=== PATIENT | female | born 1970 | race Caucasian/White ===

== ENCOUNTER 2023-11-18 16:54 | Emergency (ER) | payer SELFPAY ==
[2023-11-18] VITALS (8 sets, daily range): BP systolic 125–158; BP diastolic 80–90
[2023-11-18 17:18] LABS: % Basophils 0.6 % (0-2); % Immature Granulocytes 9.9 % (0-0.5); % Lymphocytes 19.4 % (20.5-51.1); % Neutrophils 59.1 % (42.2-75.2); Absolute Basophils 0.1 10^3/uL (0-0.2); Absolute Eosinophils 0.2 10^3/uL (0-0.7); Absolute Immature Granulocytes 0.8 10^3/uL (0-0.05); Absolute Lymphocytes 1.7 10^3/uL (1.2-3.4); Absolute Monocytes 0.8 10^3/uL (0.1-0.6); Hemoglobin 13.1 g/dL (12.0-16.0); Mean Corp Hgb Conc. 34.5 g/dL (33.0-37.0); Mean Corpuscular Hgb 29.6 pg (27.0-31.0); Nucleated Red Blood Cells % 0 %; Platelet Count 362 10^3/uL (130-400); Red Blood Cell Count 4.42 10^6/uL (4.20-5.40); Red Cell Dist. Width 12.8 % (11.5-14.5); White Blood Cell Count 8.5 10^3/uL (4.8-10.8)
[2023-11-18 17:32] LABS: ALT (SGPT) 66 U/L (0-35); AST (SGOT) 33 U/L (14-36); Albumin 3.6 g/dl (3.5-5.0); Alkaline Phosphatase 134 U/L (38-126); Blood Urea Nitrogen 12 mg/dl (7-17); Carbon Dioxide 28 mmol/L (22-30); Chloride 99 mmol/L (98-107); Glucose 107 mg/dl (70-99); Potassium 4.5 mmol/L (3.5-5.1); Sodium 135 mmol/L (135-145); Total Bilirubin 0.5 mg/dl (0.2-1.3); Total Protein 6.6 g/dl (6.3-8.2); eGFR > 60.00
--- NOTE | 2023-11-18 19:37 | ED.GENMED ---
History of Present Illness
General
Chief Complaint: Breathing Problem
Source: patient
Exam Limitations: none
Time Seen by Provider: 11/18/23 19:27
Travel History
Have you had any contact with someone who has COVID-19?: No
Do you have any symptoms of coronavirus? Fever > 100 degrees, chills, cough, shortness of breath, sore throat, loss of taste or smell, muscle aches, or headache?: No
History of Present Illness
History of Present Illness:
53-year-old female has felt off for about 3+ weeks. Started with general myalgias some headaches minimal cough. Has had shortness of breath for a few weeks. Seen in urgent care last week. Had a course of steroids without significant change
although the headaches resolved. Called urgent care today who recommended ER evaluation for ongoing some. Major symptom is shortness of breath
Past History
Past History
ED Past Medical History: None
Review of Systems
Review of Systems
Constitutional: Reports fever and chills
Respiratory: Reports cough (Slight)
Phy Exam
Physical Exam
Physical Exam:
GENERAL: Alert and oriented in no apparent distress
EYE: Orbits normal.
NECK: Supple, no significant adenopathy.
ENT: Pharynx without erythema
CARDIAC: Regular rate and rhythm without any obvious murmurs.
LUNGS: No respiratory distress. Crackles right base
ABDOMEN: Soft, without focal tenderness or distention
NEUROLOGICAL: Alert and oriented , grossly non-focal
SKIN: Warm and dry, no rash or lesion, no discoloration, skin intact.
MUSCULOSKELETAL: No edema,no deformity.Good color
PSYCH: Normal and appropriate interaction.
Scores
Heart Failure Risk
Heart Failure Risk Score: Not Applicable
Course
Orders/Labs/Results
Orders:
Orders
11/18/23 17:02
CR Chest - 2 Views Urgent
Comment:
Reason For Exam: respiratory distress
11/18/23 17:08
Complete Blood Count/With Diff Urgent
Comprehensive Metabolic Panel Urgent
11/18/23 19:34
IV Insert/Care/Rem.- Treatment PRN
0.9% Sodium Chloride 500 ml [Nss] 500 ml IV BOLUS
11/18/23 19:35
Electrocardiogram (*1) Stat
Reason for Study: Other
Other Reason for Exam: chest pain
CT Chest Pe Study Urgent
Comment:
Reason For Exam: Shortness of breath
EKG- Treatment ONCE
11/18/23 19:52
COVID-19 Antigen Urgent
Source: Nasal Swab
Troponin I Urgent
Influenza A+B Rapid Molecular Urgent
GILDARDO Source: Nasal Swab
Specimen Description:
11/18/23 22:28
Azithromycin 500 mg/250 ml [Zithromax Infusion] 500 mg in 250 ml IV NOW
CefTRIAXone [Rocephin] 1,000 mg IV NOW STA
Abnormal Lab Results
11/18/23
17:08
Abs Immat Gran (auto) 0.8 H 10^3/uL
(0-0.05)
Absolute Monos (auto) 0.8 H 10^3/uL
(0.1-0.6)
Immature Gran % 9.9 H %
(0-0.5)
Lymphocytes % 19.4 L %
(20.5-51.1)
Glucose 107 H mg/dl
(70-99)
ALT 66 H U/L
(0-35)
Alkaline Phosphatase 134 H U/L
(38-126)
11/18/23 17:08
11/18/23 17:08
Vital Signs
Initial and Last Documented VS:
Initial Vital Signs
Temp Pulse Resp BP Pulse Ox
98.3 F 83 16 125/85 98
11/18/23 17:01 11/18/23 17:01 11/18/23 17:01 11/18/23 17:01 11/18/23 17:01
Last Documented Vital Signs
Temp Pulse Resp BP Pulse Ox
98.3 F 74 18 117/73 95
11/18/23 17:01 11/18/23 20:37 11/18/23 20:37 11/19/23 00:00 11/19/23 00:00
MDM/Problems Addressed
Differential Diagnosis Includes:
Suspect infectious and probably pneumonia however with symptoms for 3 weeks slightly unusual time course. Pulmonary infarct would also have to be consideration. Will get a CT check COVID flu and cardiac for completeness
*Radiology
Radiology exam reviewed: radiology read reviewed (Questionable small infiltrate) and other (CT scan shows right upper lobe and right lower lobe infiltrate)
*EKG
Interpreted by ED Provider?: Yes
Interpretation: normal
Comparison EKG: no comparison EKG present
Heart Rate: 72
Rate: normal
Rhythm: sinus
Widen: normal axis
Interval: normal interval
QRS Pattern: normal QRS
Ischemia: no ischemia
*Critical Care Note
Total Time (30-74mins, 75-104mins- exclusive of procedures): Not Applicable
Update Note
Update Note:
Patient is remained medically stable and nontoxic. Very reasonable for outpatient coverage. No respiratory distress. Nontoxic. No immunosuppression.
ED Attending Note
-
Portions of this chart may have been created with voice recognition software.� Occasional wrong word or��sound alike� substitutions may have occurred due to the inherent limitations of voice recognition software.
Discharge Plan
Departure
Patient Disposition: Home (Routine Discharge)
Date of Disposition: 11/18/23
Time of Disposition: 22:53
Patient with high blood pressure during this ER visit?: Yes
Discharge Problem:
Right-sided pneumonia
Instructions: Pneumonia, Adult (DC), BLOOD PRESSURE
Prescriptions:
New
cefdinir 300 mg capsule
300 mg PO BID 9 Days Qty: 18 0RF
azithromycin [Zithromax] 250 mg tablet
250 mg PO DAILY Qty: 6 0RF
No Action
ibuprofen 200 mg Tablet
800 mg PO Q6H PRN (Reason: mild pain/fever)
Referrals:
Em Rodriguez MD [Active] - Follow up in 5-7 days
NONE,* [Family Provider] -
Activity Restrictions/Additional Instructions:
Azithromycin, 2 tablets day 1 then 1 tablet daily for 4 days
Omnicef twice a day.
Start both tomorrow night
You should try to find a regular physician for follow-up. Here is the name of a religious education coordinator if needed
Of course if you have any progression of symptoms or lack of improvement in the next 2 to 4 days please return to the ER
Interventions
Interventions:
*Risk Screen - Suicide Last Done: 11/18/23 18:45
*General Assessment Last Done: 11/18/23 16:59
*Neglect/Abuse Screening Last Done: 11/18/23 18:45
ED- Fall Risk Assessment Last Done: 11/19/23 00:16
*ED COVID-19 Vaccine History Last Done: 11/18/23 18:44
*Nursing Disposition Last Done: 11/19/23 00:16
ED- Cardiac Assessment Last Done: 11/18/23 18:45
ED- Pulmonary Assessment Last Done: 11/18/23 18:45
Discharge Date and Time
Discharge Date/Time: 11/19/23 00:40
Print Language: CITIZEN OF [place]
[2023-11-18 20:16] LABS: COVID-19 Antigen Negative (Negative)
[2023-11-18 20:28] LABS: Troponin I < 0.012 ng/ml
[2023-11-18] MEDS: NSS 500 IV (20:36)
[2023-11-18] MEDS: ROCEPHIN 1000 MG IV (22:50)
[2023-11-18] MEDS: ZITHROMAX INFUSION 250 IV (23:00)
[2023-11-19] VITALS: BP 117/73
== END 2023-11-19 00:40 | disposition home or self-care (01) ==
LOC: EMR 16:54
PROVIDERS: Emergency Medicine; EMERGENCY PHYSICIAN Emergency Medicine
DX: J18.9 Pneumonia, unspecified organism (principal); R03.0 Elevated blood-pressure reading, without diagnosis of hypertension; R51.9 Headache, unspecified; Z11.52 Encounter for screening for COVID-19; Z88.1 Allergy status to other antibiotic agents; Z88.0 Allergy status to penicillin
CPT/HCPCS: 99285; 96361 ×2; 96365; 71046; 71275; 80053; 84484; 85025; 87502; 87811; 93005; Q9967

== ENCOUNTER 2023-11-22 19:37 | Observation (INO) | payer SELFPAY ==
[2023-11-22] VITALS (8 sets, daily range): BP systolic 137–167; BP diastolic 75–96; BMI 29.5; BMI 28.0
--- NOTE | 2023-11-22 16:05 | ED.GENMED ---
History of Present Illness
General
Chief Complaint: Breathing Problem
Source: patient
Exam Limitations: none
Time Seen by Provider: 11/22/23 15:03
Nursing documentation reviewed up to this point in time: agreed with
Travel History
Have you had any contact with someone who has COVID-19?: No
Do you have any symptoms of coronavirus? Fever > 100 degrees, chills, cough, shortness of breath, sore throat, loss of taste or smell, muscle aches, or headache?: No
History of Present Illness
History of Present Illness:
Patient diagnosed with pneumonia 4 days ago, and started on Omnicef and Zithromax, presents to ED secondary to continual intermittent cough, along with worsening shortness of breath with exertion. Denies fever at home currently, although she had
fever 2 weeks ago, as she has had ongoing symptoms for the past 3 weeks. Denies chest pain. Denies nausea, vomiting, or diarrhea. Denies dizziness. Denies headache. Denies sore throat. Patient has noted nonpainful, non-itchy rash on her
forehead today. 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 Denies travel outside the country.
Past History
Past History
ED Past Medical History: None
Review of Systems
Review of Systems
Allergies reviewed?: Yes
All Other Systems: ROS reviewed and negative except as documented in HPI and ROS
Constitutional: Reports night sweats; Denies weight loss
EENT: Reports no symptoms
Respiratory: Reports cough and trouble breathing
Cardiac: Reports no symptoms
ABD/GI: Reports diarrhea; Denies vomiting
: Reports no symptoms
Musculoskeletal: Reports no symptoms
Skin: Reports no symptoms
Neurological: Reports no symptoms
Phy Exam
Physical Exam
Physical Exam:
Physical Exam
General: mild respiratory distress, not acutely ill. afebrile.
Head: nc/at. eomi
Neck: supple. no meningeal signs.
Heart: s1/s2 regular rate and rhythm, no murmur. equal radial pulses.
Lungs: mild respiratory distress. clear bilaterally
Abdomen: normal bowel sounds. not tender.
Neuro: alert and oriented. no focal neurological deficits
Skin: no rash
Psychiatric: well kept. interactive and cooperative
Extremities: no edema. no calf tenderness.
Scores
Heart Failure Risk
Heart Failure Risk Score: Not Applicable
Course
Orders/Labs/Results
Orders:
Orders
11/22/23 16:10
0.9% Sodium Chloride 500 ml [Nss] 500 ml IV BOLUS
Albuterol Nebs [Ventolin Nebules] 2.5 mg INH R NOW STA
Vancomycin 1 Gram/200 ml [Vancocin] 1 gram in 200 ml IV NOW
11/22/23 16:14
Complete Blood Count/With Diff Urgent
Comprehensive Metabolic Panel Urgent
Lactic Acid Q4H
Comment: CANCEL 2nd LACTIC ACID IF 1st LACTIC ACID IS LESS THAN 2
Magnesium Urgent
NT-proBNP Urgent
Blood Culture Q30M
GILDARDO Source: Blood/Venous
Specimen Description:
Blood Culture Q30M
GILDARDO Source: Blood/Venous
Specimen Description:
11/22/23 16:17
Urinalysis Reflex To Culture Urgent
Date Specimen was Collected: 11/22/23
Time Specimen was Collected: 16:13
11/22/23 17:00
Sterile Water [Sterile Water For Injection] 10 ml IV ONCE ONE
11/22/23 17:30
CR Chest - 2 Views Urgent
Comment:
Reason For Exam: sob/hypoxia
11/22/23 17:32
Add On- LAB Urgent
Tests Added?: procalcitonin
11/22/23 18:00
Aztreonam [Azactam] 2,000 mg IV ONCE ONE
11/22/23 19:24
Admit/Transfer Patient As Directed
Co-Sign Provider:
Level of Care: Observation services
Assign to:: Medical/Surgical
Physician / Group: hospitalist
Diagnosis: right upper lobe pneumonia
11/22/23 19:25
Code Status As Directed
Resuscitation Status: Full Code
11/22/23 20:15
Lactic Acid Q4H
Comment: CANCEL 2nd LACTIC ACID IF 1st LACTIC ACID IS LESS THAN 2
Abnormal Lab Results
11/22/23
16:14
MCHC 32.3 L g/dL
(33.0-37.0)
Abs Immat Gran (auto) 0.1 H 10^3/uL
(0-0.05)
Immature Gran % 2.1 H %
(0-0.5)
Glucose 117 H mg/dl
(70-99)
ALT 52 H U/L
(0-35)
11/22/23 16:14
11/22/23 16:14
Vital Signs
Initial and Last Documented VS:
Initial Vital Signs
Temp Pulse Resp BP Pulse Ox
98.3 F 68 20 155/96 99
11/22/23 14:22 11/22/23 14:22 11/22/23 14:22 11/22/23 14:22 11/22/23 14:22
Last Documented Vital Signs
Temp Pulse Resp BP Pulse Ox
98.3 F 73 15 146/88 99
11/22/23 14:22 11/22/23 20:30 11/22/23 20:30 11/22/23 20:00 11/22/23 14:22
MDM/Problems Addressed
MDM/Problems Addressed:
CT chest report from previous ED visit noted -right upper and lower lobe consolidation.
During short ambulation ED, patient found to be in moderate to severe respiratory distress. Patient will be admitted for IV antibiotics, failed outpatient therapy.
*Critical Care Note
Total Time (30-74mins, 75-104mins- exclusive of procedures): Not Applicable
ED Attending Note
-
Portions of this chart may have been created with voice recognition software.� Occasional wrong word or��sound alike� substitutions may have occurred due to the inherent limitations of voice recognition software.
Discharge Plan
Departure
Patient Disposition: Admit
Date of Disposition: 11/22/23
Time of Disposition: 17:18
Admit to: Telemetry
Presentation/result/management discussed w/ accepting MD/DO: Hospitalist
Discharge Problem:
Pneumonia
Interventions
Interventions:
*Risk Screen - Suicide Last Done: 11/22/23 17:05
*General Assessment Last Done: 11/22/23 17:05
*Neglect/Abuse Screening Last Done: 11/22/23 17:05
ED- Fall Risk Assessment Last Done: 11/22/23 17:05
*ED COVID-19 Vaccine History Last Done: 11/22/23 14:22
*Nursing Disposition Last Done: 11/22/23 20:36
ED- Cardiac Assessment Last Done: 11/22/23 16:15
ED- Pulmonary Assessment Last Done: 11/22/23 16:15
Discharge Date and Time
Discharge Date/Time: 11/22/23 20:38
[2023-11-22] MEDS: NSS 500 IV (16:21)
[2023-11-22 16:23] LABS: % Basophils 0.7 % (0-2); % Eosinophils 1.6 % (0-6); % Immature Granulocytes 2.1 % (0-0.5); % Lymphocytes 40.4 % (20.5-51.1); % Monocytes 5.1 % (1.7-9.3); % Neutrophils 50.1 % (42.2-75.2); Absolute Eosinophils 0.1 10^3/uL (0-0.7); Absolute Immature Granulocytes 0.1 10^3/uL (0-0.05); Absolute Lymphocytes 2.3 10^3/uL (1.2-3.4); Absolute Monocytes 0.3 10^3/uL (0.1-0.6); Absolute Neutrophils 2.9 10^3/uL (1.4-6.5); Hematocrit 43.3 % (37.0-47.0); Mean Corp Hgb Conc. 32.3 g/dL (33.0-37.0); Mean Corpuscular Volume 89.6 fL (81.0-99.0); Mean Platelet Volume 9.4 fL (7.4-10.4); Nucleated Red Blood Cells % 0 %; Platelet Count 341 10^3/uL (130-400); Red Blood Cell Count 4.83 10^6/uL (4.20-5.40); Red Cell Dist. Width 12.1 % (11.5-14.5); White Blood Cell Count 5.7 10^3/uL (4.8-10.8)
[2023-11-22 16:32] LABS: Lactic Acid 1.5 mmol/L (0.7-2.0)
[2023-11-22 16:34] LABS: Urine Albumin Negative (Neg - Trace); Urine Bilirubin Negative (Negative); Urine Character Clear (Clear); Urine Color Straw; Urine Glucose Negative (Negative); Urine Ketone Negative (Negative); Urine Leukocyte Negative (Negative); Urine Nitrite Negative (Negative); Urine Occult Blood Negative (Negative); Urine Specific Gravity 1.005 (<1.030); Urine Urobilinogen Negative (Neg - 1+)
[2023-11-22] MEDS: VENTOLIN NEBULES 2.5 MG INH (16:35)
[2023-11-22 16:37] LABS: ALT (SGPT) 52 U/L (0-35); AST (SGOT) 29 U/L (14-36); Albumin 4.4 g/dl (3.5-5.0); Alkaline Phosphatase 114 U/L (38-126); Blood Urea Nitrogen 12 mg/dl (7-17); Carbon Dioxide 28 mmol/L (22-30); Chloride 103 mmol/L (98-107); Glucose 117 mg/dl (70-99); Magnesium 2.3 mg/dl (1.6-2.3); Sodium 139 mmol/L (135-145); Total Bilirubin 0.3 mg/dl (0.2-1.3); Total Protein 7.8 g/dl (6.3-8.2); eGFR > 60.00
[2023-11-22] MEDS: VANCOCIN 200 IV (16:37)
[2023-11-22 16:42] LABS: NT-proBNP 26.4 pg/ml
[2023-11-22] MEDS: STERILE WATER FOR INJECTION 10 ML IV (16:56)
[2023-11-22] MEDS: AZACTAM 2000 MG IV (16:56)
--- NOTE | 2023-11-22 19:12 | HPS.HSE ---
Family Physician
-
Family Physician: * NONE
Chief Complaint
-
Shortness of breath, failure of outpatient treatment for pneumonia
History of Present Illness
This is a 53-year-old with no known significant past medical history and on not on any medications at home who presented to the emergency department about 5 days ago with cough and shortness of breath and was found to have a lobar pneumonia for
which she was treated initially with IV antibiotics transitioning to oral and then discharged from the ED now returning to the ED with ongoing dyspnea exertion.
Patient reports compliance with her antibiotics. She now has just a dry cough. However she reports that she is still having dyspnea on exertion but no shortness of breath at rest. She has a cough that is now nonproductive. She denied having any
fevers or chills. She had no known new sick contacts. Patient denies any pleuritic chest pain. She denies any lower extremity swelling, calf tenderness or redness. She reports mild diarrhea while she is taking the antibiotics. She also reports
feeling dehydrated.
In the ED she is afebrile, blood pressure was 160 60, pulse 75 and oxygen saturation was 96 to 99% on room air at rest. Repeat chest x-ray shows improvement in the right upper lobe pneumonia. She however does note with any signs of an effusion,
pneumothorax or abscess suggestive of pneumonia complications. He has no leukocytosis, hemoglobin is stable, normal limits.
Medical History
Past Medical History
Past Medical History: Reports None
Past Surgical History: Reports None
Social History
Tobacco: Non-smoker
Alcohol: None
Drug: None
Personal:
Living: With Family
Employment: Employed
Family History
Family History: Not pertinent
Allergies / Home Medications
Allergies reflects when Allergies were last updated in [employer].
Home Medications with original date entered in [employer]
Allergy/Medication List:
Allergies
Allergy/AdvReac Type Severity Reaction Status Date / Time
metronidazole [From Flagyl] Allergy Unknown Rash Verified 11/22/23 14:22
Penicillins Allergy Unknown Unknown Verified 11/22/23 16:56
Home Medications
cefdinir 300 mg capsule 300 mg PO BID 9 days #18 caps 11/18/23
ibuprofen 200 mg tablet 800 mg PO Q6H PRN mild pain/fever 11/18/23
Lactobac no.2-Bifidobac no.1-S. thermo 112.5 billion cell capsule (Visbiome) 1 cap PO DAILY@1400 11/22/23
azithromycin 250 mg tablet (Zithromax) 250 mg PO DAILY@2100 11/22/23
Review of Systems
-
History Source: Patient
Constitutional: Reports No Symptoms
EENT: Reports No Symptoms
Respiratory: Reports Cough and Trouble Breathing
Cardiac: Reports No Symptoms
Abdomen/GI: Reports No Symptoms
: Reports No Symptoms
Musculoskeletal: Reports No Symptoms
Skin: Reports No Symptoms
Neurological: Reports No Symptoms
Endocrine: Reports No Symptoms
Hematologic/Lymphatic: Reports No Symptoms
Psych: Reports No Symptoms
Physical Exam
Vital Signs
Vital Signs
Temp Pulse Resp BP Pulse Ox
98.3 F 75 20 160/92 99
11/22/23 14:22 11/22/23 18:38 11/22/23 18:38 11/22/23 18:38 11/22/23 14:22
Physical Exam
General: Well Developed, Well Nourished and Comfortable
HEENT: NormoCephalic, Moist mucous membranes, Atraumatic, PERRLA and Neck Nontender
Respiratory: Clear
Cardiac: S1/S2 and Regular Rhythm
Breast: Deferred by me
GI: Soft, Non Tender, Non Distended and Normal Bowel Sounds
Rectal: Deferred by Provider
Genito-urinary: Deferred by me
Musculoskeletal: No Clubbing, No Cyanosis and No Edema
Skin: Warm and Dry
Neuro: AO x 3
Hematologic/Lymphatic: No Lymphadenopathy
Psych: Calm
Laboratory Results
-
11/22/23 16:14
11/22/23 16:14
Laboratory Results
Lactic Acid 1.5 mmol/L (0.7-2.0) 11/22/23 16:14
Total Bilirubin 0.3 mg/dl (0.2-1.3) 11/22/23 16:14
AST 29 U/L (14-36) 11/22/23 16:14
ALT 52 U/L (0-35) H 11/22/23 16:14
Alkaline Phosphatase 114 U/L (38-126) 11/22/23 16:14
Data Reviewed
-
Diagnostic Radiology: Image Personally Visualized and interpreted and Report Reviewed by me
CT Scan: Report Reviewed by me (prior CT scan)
Lab Data: Labs Reviewed by me
Impression/Plan
-
IMPRESSION:
This is an otherwise healthy 53 y.o female who was recently diagnosed with RUL PNA 5 days ago after about 1 week of symptoms. She was treated with IV abx in ED and sent home on cefdinir and azithromycin. She has been compliant with the abx. She
returns with dyspnea on exertion. She does not have other signs of worsening pneumonia. Cough is non-productive. Oxygen saturation is 96-99% at rest. Chest Xray is improving. She is afebrile and has no leukocytosis. All these point to
improvement in her PNA. She was ruled out for PE on her last admission so unlikely she has developed one now. Further she has no chest pain, and no LE symptoms concerning for DVT. Discussed discharge but patient felt uncomfortable due to dyspnea
on exertion.
PLAN:
1. RUL PNA - Patient with persistent symptoms of dyspnea on exertion with improvement in all other parameters and minimal clinical signs of pneumonia. Supect she has sequela of the pneumonia rather than failure of therapy. Given IV vancomycin and
aztreonam in ED. Will admit to complete course of abx via IV and evaluate her dyspnea
- admit to f
- ceftriaxone IV, azithromycin IV as no evidence of worsening pneumonia or resistant bacteria
- check mrsa swab and procalcitonin
- ambulating sats in am, if significant hypoxia consider repeating CT PE
- supportive care with prn albuterol, tylenol and antitussives.
2. Mild dehydration - subjective feeling of dehydration. Exam is euvolemic but had mild diarrhea. Normal electrolytes and Renal function stable.
- IV NS 100ml/hr overnight for 1 bag
DVT PPX with lovenox sq
Full Code
--- NOTE | 2023-11-22 20:50 | PTCARENOTE ---
Pt arrived from ED via stretcher and ambulated to bed w/ family member at bedside. Pt AAOx3, VSS, and w/o complaints of pain. Pt is oriented to room resting comfortably w/ call matos within reach.
[2023-11-22] MEDS: NSS 1000 IV (22:19)
[2023-11-23 06:16] LABS: Hematocrit 38.2 % (37.0-47.0); Hemoglobin 12.6 g/dL (12.0-16.0); Mean Corpuscular Hgb 29.4 pg (27.0-31.0); Mean Platelet Volume 9.4 fL (7.4-10.4); Platelet Count 264 10^3/uL (130-400); Red Blood Cell Count 4.29 10^6/uL (4.20-5.40); Red Cell Dist. Width 12.2 % (11.5-14.5); White Blood Cell Count 5.2 10^3/uL (4.8-10.8)
[2023-11-23 06:37] LABS: Blood Urea Nitrogen 10 mg/dl (7-17); Carbon Dioxide 25 mmol/L (22-30); Chloride 106 mmol/L (98-107); Estimated Creatinine Clearance 116 ml/min; Glucose 121 mg/dl (70-99); Potassium 3.9 mmol/L (3.5-5.1); Sodium 141 mmol/L (135-145); eGFR > 60.00
[2023-11-23 06:51] LABS: Procalcitonin < 0.05 ng/ml (0.0-0.25)
[2023-11-23 07:30] VITALS: BP 132/79
[2023-11-23] MEDS: NSS 1000 IV (08:38)
[2023-11-23] MEDS: ROCEPHIN 1000 MG IV (08:39)
[2023-11-23] MEDS: STERILE WATER FOR INJECTION 10 ML IV (08:40)
[2023-11-23] MEDS: VIBRAMYCIN 100 MG PO (08:53)
--- NOTE | 2023-11-23 10:03 | CM ---
Patient seen at bedside with patient at bedside. Patient here as OBS and form reviewed with patient and she is reading form over. Patient has no insurance and she would [facility] to [facility] about [facility]. Patient confirmed that they lived in
a 2 story home with no needs anticipated. patient does not have any PCP and would like list of options. Patient uses [facility] on [address] [place]. CM will continue to follow for discharge planning needs.
Plan; home with no needs anticipated. HRSI to see patient
--- NOTE | 2023-11-23 10:52 | W.PN.HOSP.TC ---
Today's Communication/Plan
-
dc home
Assessment / Plan
Assessment / Plan
Assessment:
R sided CAP PNA
- repeat CXR improving, procal negative
- symptoms improving from admission
- passed home O2 eval
- switch to Levaquin, complete 5 day course
- prn Albuterol
- mucolytics
- PCP f/u in 7-10 days
Mild dehydration
- finish IVF
Code: Full
More than 30 minutes spent in discharge including
Final examination of the patient
Summarizing hospital stay
Instructions for continuing care to all relevant caregivers
Preparation of discharge records, prescriptions, and referral forms
Total time spent (in minutes): 41
Anticipated Discharge: Today
Subjective/Interval History
-
Date of Service: November 23, 2023
feels subjectively improved, no other complaints
Objective Data
-
Labs:
Laboratory Results
11/23/23
06:04
WBC 5.2
Hgb 12.6
Hct 38.2
Plt Count 264 D
Sodium 141
Potassium 3.9
Chloride 106
Carbon Dioxide 25
BUN 10
Creatinine 0.6
Glucose 121 H
Calcium 9.0
Vital Signs:
Vital Signs
Temp Pulse Resp BP Pulse Ox
98.5 F 71 16 132/79 96
11/23/23 07:30 11/23/23 07:30 11/23/23 07:30 11/23/23 07:30 11/23/23 07:30
I&O
11/22/23 11/23/23 11/24/23
06:59 06:59 06:59
Intake Total 1919
Balance 1919
Physical Exam
-
General: No Apparent Distress
HEENT: Normocephalic and Atraumatic
Respiratory: Negative Wheezes or Rales
Cardiac: Regular Rhythm and S1/S2
GI: Soft and Nontender
Musculoskeletal: No Edema
Neuro: AO x 3
Hematologic / Lymphatic: No Lymphadenopathy
Psych: Calm
Data Reviewed
-
Total Time Spent with Patient (in minutes): 42
Labs: Labs Reviewed by me
--- NOTE | 2023-11-23 11:39 | W.DS.TRANS ---
DC Summary - Division Operations Manager
-
Discharge Instructions:
Discharge Diagnosis/Procedures community acquired pneumonia
Diet Regular
Activity As tolerated
Bathing Restrictions None
Instructions:
Stand-Alone Forms:
Changes to Home Medications: No
Discharge Medications:
DC Medications w/original date entered in [employer]
Lactobac no.2-Bifidobac no.1-S. thermo 112.5 billion cell capsule (Visbiome) 1 cap PO DAILY@1400 11/22/23
albuterol sulfate 1.25 mg/3 mL solution for nebulization 1.25 mg (3 mL) inhalation R Q4HPRN PRN shortness of breath/wheezing #75 mL 11/23/23
albuterol sulfate 90 mcg/actuation aerosol inhaler 1 puff inhalation Q6H PRN shortness of breath or wheezing #8.5 grams 11/23/23
guaifenesin 600 mg tablet, extended release 12 hr 1,200 mg (2 x 600 mg) PO Q12 #30 tabs 11/23/23
levofloxacin 750 mg tablet 750 mg PO DAILY #4 tabs 11/23/23
Home Medication Changes
Pending Results: No
Total time spent discharging patient (in min): 41
[2023-11-23] MEDS: MUCINEX 1200 MG PO (12:16)
[2023-11-23] MEDS: LEVAQUIN 750 MG PO (12:17)
[2023-11-23] MEDS: TYLENOL 650 MG PO (15:12)
[2023-11-23 15:53] VITALS: BP 153/86
== END 2023-11-23 17:25 | disposition home or self-care (01) ==
LOC: 4 EAST ACU 19:37
PROVIDERS: ADMITTING PHYSICIAN Internal Medicine; ATTENDING PHYSICIAN Internal Medicine; EMERGENCY PHYSICIAN Emergency Medicine
DX: R06.02 Shortness of breath (principal); J18.9 Pneumonia, unspecified organism; E86.0 Dehydration; Z88.0 Allergy status to penicillin; Z88.1 Allergy status to other antibiotic agents
CPT/HCPCS: 71046; 80048; 80053; 81003; 83605; 83735; 83880; 84145; 85025; 85027; 87040; 87641; 94640; 96365; 96375; 99285; G0378